=== PATIENT | male | born 1995 | race Caucasian/White ===

== ENCOUNTER 2024-04-28 22:56 | Emergency (ER) | payer OTHER ==
[2024-04-28 23:06] VITALS: TEMP 98
[2024-04-28 23:58] LABS: Basophils # (A) 0.1 k/uL (0-0.2); Basophils % (A) 1 %; Eosinophils # (A) 0.2 k/uL (0-0.7); Eosinophils % (A) 3 %; HCT 42.9 % (39.0-53.0); HGB 14.5 gm/dL (13.0-17.5); Lymphocytes # (A) 2.1 k/uL (1.0-4.8); Lymphocytes % (A) 30 %; MCH 30.2 pg (25.0-35.0); MCHC 33.9 g/dL (31.0-37.0); MCV 89.2 fL (80.0-100.0); Monocytes # (A) 0.4 k/uL (0-1.0); Monocytes % (A) 6 %; Neutrophils # (A) 3.9 k/uL (1.3-7.7); Neutrophils % (A) 56 %; Platelet Count 208 k/uL (150-450); RBC 4.81 m/uL (4.30-5.90)
[2024-04-29 00:09] LABS: INR 1.2 (<1.2); Partial Thromboplastin Time 24.6 sec (22.0-30.0); Prothrombin Time 12.5 sec (10.0-12.5)
[2024-04-29 00:21] LABS: ALT 15 U/L (4-49); AST 26 U/L (17-59); African American GFR (CKD) >90 (>60 ml/min/1.73 sqM); Albumin 4.3 g/dL (3.5-5.0); Alkaline Phosphatase 42 U/L (38-126); Anion Gap 7 mmol/L; Blood Urea Nitrogen 13 mg/dL (9-20); Calcium 9.2 mg/dL (8.4-10.2); Carbon Dioxide 22 mmol/L (22-30); Chloride 110 mmol/L (98-107); Glucose 90 mg/dL (74-99); Magnesium 1.9 mg/dL (1.6-2.3); Non-African American GFR(CKD) >90 (>60 ml/min/1.73 sqM); Potassium 3.7 mmol/L (3.5-5.1); Sodium 139 mmol/L (137-145); Total Bilirubin 0.8 mg/dL (0.2-1.3); Total Protein 6.4 g/dL (6.3-8.2)
[2024-04-29] MEDS: SODIUM CHLORIDE 0.9% 1,000 ML IV STA (00:30)
[2024-04-29] MEDS: KETOROLAC 15 MG/ML 1 ML VIAL IVP STA (00:31)
[2024-04-29] MEDS: hydrOXYzine HCL 25 MG TAB PO STA (00:32)
[2024-04-29 00:42] VITALS: RESP 16
--- NOTE | 2024-04-29 01:17 | XR ---
EXAMINATION TYPE: XR chest 2V DATE OF EXAM: 04/29/2024 COMPARISON: NONE HISTORY: Chest pain. TECHNIQUE: Frontal and lateral views of the chest are obtained. FINDINGS: Overlying EKG leads are seen. There is no focal air space opacity, pleural effusion, or pne umothorax seen. The cardiac silhouette size is within normal limits. The osseous structures are in tact. IMPRESSION: No acute cardiopulmonary process.
[2024-04-29] MEDS: DEXAMETHASONE SOD PHOSPHATE 10 MG/ML 1 ML VIAL IVP STA (02:31)
--- NOTE | 2024-04-29 02:48 | ED ---
Chest Pain HPI - General Chief Complaint: Chest Pain Stated Complaint: chest pain numbness Time Seen by Provider: 04/28/24 23:12 Source: patient Mode of arrival: wheelchair Limitations: no limitations - History of Present Illness Initial Comments: 29-year-old male presenting with chief complaint of chest pain. Pain started yesterday. It is a pain in the center of the chest with occasional radiation to the arm. Patient states that he has had pain like this ongoing for quite a while. He has been to different ERs multiple times and states that "they cannot find anything wrong with me". He does not follow with a PCP. He states that at times when he gets the pain he also gets a sensation of tightness in his throat, tingling in his extremities, dizziness. No cough, congestion, sore throat, fever, chills, nausea, vomiting. - Related Data Allergies Allergy/AdvReac Type Severity Reaction Status Date / Time No Known Allergies Allergy Verified 04/28/24 22:59 Review of Systems ROS Statement: Those systems with pertinent positive or pertinent negative responses have been documented in the HPI. ROS Other: All systems not noted in ROS Statement are negative. Past Medical History Past Medical History: Pneumonia History of Any Multi-Drug Resistant Organisms: MRSA Date of last positivie culture/infection: 2021 MDRO Source:: hip Past Surgical History: Orthopedic Surgery Past Psychological History: ADD/ADHD, Anxiety, Bipolar, Depression, PTSD Smoking Status: Vaper Past Alcohol Use History: None Reported Past Drug Use History: Marijuana General Exam Limitations: no limitations General appearance: alert, anxious Head exam: Present: atraumatic, normocephalic Eye exam: Present: normal appearance, EOMI Neck exam: Present: normal inspection. Absent: meningismus Respiratory exam: Present: normal lung sounds bilaterally. Absent: respiratory distress, wheezes, rales, rhonchi, stridor Cardiovascular Exam: Present: normal rhythm, bradycardia, normal heart sounds. Absent: systolic murmur, diastolic murmur, rubs, gallop, clicks Extremities exam: Present: normal inspection. Absent: pedal edema Neurological exam: Present: alert, oriented X3 Psychiatric exam: Present: normal affect, normal mood Skin exam: Present: warm, dry Course Vital Signs 04/28/24 04/29/24 04/29/24 23:00 00:38 02:54 Temperature 98.0 F Pulse Rate 50 L 40 L 50 L Respiratory 18 16 16 Rate Blood Pressure 143/80 110/61 111/50 O2 Sat by Pulse 100 100 99 Oximetry Chest Pain MDM - MDM Was pt. sent in by a medical professional or institution (MARBIN Horne, BOX SEALING INSPECTOR, urgent care, hospital, or [place] health care facility...) When possible be specific @ -No Did you speak to anyone other than the patient for history (EMS, parent, family, police, friend...)? What history was obtained from this source @ -No Did you review nursing and triage notes (agree or disagree)? Why? @ -I reviewed and agree with nursing and triage notes Were old charts reviewed (outside hosp., previous admission, EMS record, old EKG, old radiological studies, urgent care reports/EKG's, [place] health care facility records)? Report findings @ -No old charts were reviewed Differential Diagnosis (chest pain, altered mental status, abdominal pain women, abdominal pain men, vaginal bleeding, weakness, fever, dyspnea, syncope, headache, dizziness, GI bleed, back pain, seizure, CVA, palpatations, mental health, musculoskeletal)? @ -MDM Differential Chest Pain: Stable Angina, Unstable Angina, STEMI, NSTEMI Aortic Dissection, Pneumothorax, Musculoskeletal, Esophageal Spasm GERD, Cholecystitis, Pancreatitis, Zoster This is not meant to be an all-inclusive list. EKG interpreted by me (3pts min.). @ -EKG shows sinus bradycardia ventricular rate 39. FL interval 164. QRS 108. QT 413. QTc 338. X-rays interpreted by me (1pt min.). @ -Chest x-ray shows no acute cardiac pulmonary process CT interpreted by me (1pt min.). @ -None done U/S interpreted by me (1pt. min.). @ -None done What testing was considered but not performed or refused? (CT, X-rays, U/S, labs)? Why? @ -I offered the patient admission for evaluation by cardiology, he refused What meds were considered but not given or refused? Why? @ -None Did you discuss the management of the patient with other professionals (professionals i.e. MARBIN Horne, BOX SEALING INSPECTOR, lab, RT, psych nurse, social science analyst, wet trimmer, teacher, immigration officer, rn case management)? Give summary @ -No Was smoking cessation discussed for >3mins.? @ -No Was critical care preformed (if so, how long)? @ -No Were there social determinants of health that impacted care today? How? (Homelessness, low income, unemployed, alcoholism, drug addiction, transportation, low edu. Level, literacy, decrease access to med. care, half-way, rehab)? @ -No Was there de-escalation of care discussed even if they declined (Discuss DNR or withdrawal of care, Hospice)? DNR status @ -No What co-morbidities impacted this encounter? (DM, HTN, Smoking, COPD, CAD, Cancer, CVA, ARF, Chemo, Hep., AIDS, mental health diagnosis, sleep apnea, morbid obesity)? @ -None Was patient admitted / discharged? Hospital course, mention meds given and route, prescriptions, significant lab abnormalities, going to OR and other pertinent info. @ -29-year-old male presenting with chief complaint of chest pain. History and physical examination are conducted. It is noted that the patient is bradycardic. He is not having any dizziness or difficulty breathing, he is showing no acute distress. Resting comfortably in the stretcher. Heart and lungs are clear to auscultation. No pedal edema. No leukocytosis or anemia. Negative troponin. Negative for influenza, RSV, COVID. Chest x-ray shows no acute cardiopulmonary process. EKG shows sinus bradycardia with no ST deviation. The patient's nurse ambulated while monitoring his vitals, patient was asymptomatic throughout their walk. Vitals stable, consistent with his range while he has been here. I offered the patient admission for evaluation by cardiology given his bradycardia. Patient refuses states he is scared of hospitals. He is provided with referrals for primary care doctor and orthotist or prosthetist. Discharged. Follow-up with PCP. Report back to ER with any new or worsening symptoms. Discussed return parameters and answered all questions. Patient conveyed verbal understanding and agreed to the plan. I discussed this case in detail with my attending Dr. Haji Undiagnosed new problem with uncertain prognosis? @ -No Drug Therapy requiring intensive monitoring for toxicity (Heparin, Nitro, Insulin, Cardizem)? @ -No Were any procedures done? @ -No Diagnosis/symptom? @ -Chest pain, sinus bradycardia Acute, or Chronic, or Acute on Chronic? @ -Acute Uncomplicated (without systemic symptoms) or Complicated (systemic symptoms)? @ -Uncomplicated Side effects of treatment? @ -No Exacerbation, Progression, or Severe Exacerbation? @ -No Disposition Clinical Impression: Chest wall pain, Bradycardia Disposition: HOME SELF-CARE Condition: Good Instructions (If sedation given, give patient instructions): Chest Pain (ED), Costochondritis (ED), Bradycardia (ED) Additional Instructions: Follow-up with PCP and cardiology. Report back to ER with any new or worsening symptoms. Is patient prescribed a controlled substance at d/c from ED?: No Referrals: None,Stated [Primary Care Provider] - 1-2 days Pedro Gilmore MD [STAFF PHYSICIAN] - 1-2 days Maykel Raya MD [STAFF PHYSICIAN] - 1-2 days Time of Disposition: 02:48
[2024-04-29 02:56] VITALS: BP 111/50; PULSE 50
== END 2024-04-29 03:12 | disposition home or self-care (01) ==
LOC: EC 22:56
CPT/HCPCS: 36415; 71046; 80053; 83735; 84484; 85025; 85610; 85730; 87636; 93005; 96361; 96374; 96375; 99285

== ENCOUNTER 2024-06-11 20:52 | Emergency (ER) | payer OTHER ==
[2024-06-11 21:00] VITALS: RESP 18
--- NOTE | 2024-06-11 21:17 | ED ---
General Adult HPI - General Chief complaint: Upper Respiratory Infection Stated complaint: cough congestion Time Seen by Provider: 06/11/24 21:16 Source: patient, RN notes reviewed Mode of arrival: ambulatory Limitations: no limitations - History of Present Illness Initial comments: 29-year-old male presenting to the ER with a chief complaint of shortness of breath. Patient states he has been having difficulty breathing for the past 4 to 5 weeks. He states it has progressively worsened. He does report he recently quit smoking cigarettes approximately 2 weeks ago. He still smokes 1 cigarette a day and marijuana. He also was endorsing a dry cough and a burning chest discomfort. He states the chest discomfort is in his central chest worse when he lays down and in the morning. Does mild improvement throughout the day. He has been taking [id number] ibuprofen with no relief. He denies any peripheral edema or exertional dyspnea. Denies any history of blood clots. Denies any abdominal pain, constipation/diarrhea, urinary complaints. - Related Data Previous Rx's Medication Instructions Recorded Omeprazole 20 mg PO DAILY #30 cap 06/11/24 Allergies Allergy/AdvReac Type Severity Reaction Status Date / Time Penicillins Allergy Rash/Hives Verified 06/11/24 21:00 Review of Systems ROS Statement: Those systems with pertinent positive or pertinent negative responses have been documented in the HPI. ROS Other: All systems not noted in ROS Statement are negative. Past Medical History Past Medical History: Pneumonia History of Any Multi-Drug Resistant Organisms: MRSA Date of last positivie culture/infection: 2021 MDRO Source:: hip Past Surgical History: Orthopedic Surgery Past Psychological History: ADD/ADHD, Anxiety, Bipolar, Depression, PTSD Smoking Status: Vaper Past Alcohol Use History: None Reported Past Drug Use History: Marijuana General Exam Limitations: no limitations General appearance: alert, in no apparent distress ENT exam: Present: normal exam, normal oropharynx, mucous membranes moist Neck exam: Present: normal inspection. Absent: tenderness, meningismus, lymphadenopathy Respiratory exam: Present: normal lung sounds bilaterally. Absent: respiratory distress, wheezes, rales, rhonchi, stridor Cardiovascular Exam: Present: regular rate, normal rhythm, normal heart sounds. Absent: systolic murmur, diastolic murmur, rubs, gallop, clicks Neurological exam: Present: alert, oriented X3, CN II-XII intact Skin exam: Present: warm, dry, intact, normal color. Absent: rash Course Vital Signs 06/11/24 06/11/24 20:58 23:08 Temperature 98.4 F 97.9 F Pulse Rate 78 52 L Respiratory 18 18 Rate Blood Pressure 109/73 98/55 O2 Sat by Pulse 97 99 Oximetry Medical Decision Making - Medical Decision Making Was pt. sent in by a medical professional or institution (, [place], [employer]IC[employer]ER, urgent care, hospital, or senior living...) When possible be specific @ -No Did you speak to anyone other than the patient for history (EMS, parent, family, police, friend...)? What history was obtained from this source @ -No Did you review nursing and triage notes (agree or disagree)? Why? @ -I reviewed and agree with nursing and triage notes Were old charts reviewed (outside hosp., previous admission, EMS record, old EKG, old radiological studies, urgent care reports/EKG's, senior living records)? Report findings @ -No old charts were reviewed Differential Diagnosis (chest pain, altered mental status, abdominal pain women, abdominal pain men, vaginal bleeding, weakness, fever, dyspnea, syncope, headache, dizziness, GI bleed, back pain, seizure, CVA, palpatations, mental health, musculoskeletal)? @ -Differential Chest Pain: Stable Angina, Unstable Angina, STEMI, NSTEMI Aortic Dissection, Pneumothorax, Musculoskeletal, Esophageal Spasm GERD, Cholecystitis, Pancreatitis, Zoster, this is not meant to be an all-inclusive list. EKG interpreted by me (3pts min.). @ -As above X-rays interpreted by me (1pt min.). @ -CXR interpreted by me negative for acute cardiopulmonary process. CT interpreted by me (1pt min.). @ -None done U/S interpreted by me (1pt. min.). @ -None done What testing was considered but not performed or refused? (CT, X-rays, U/S, labs)? Why? @ -None What meds were considered but not given or refused? Why? @ -None Did you discuss the management of the patient with other professionals (professionals i.e. , MARBIN, B[employer] LU[employer]IC[employer] MIXER, lab, RT, psych nurse, social work assistant, child support specialist, teacher, chief business development officer, child support case officer)? Give summary @ -No Was smoking cessation discussed for >3mins.? @ -I discussed smoking cessation for greater than 3 minutes. The risk of smoking were discussed with the patient including but not limited to risks of cancer, stroke, coronary artery disease and COPD. Also discussed with patient were multiple methods of quitting smoking. Lastly we discussed the financial cost of smoking. Was critical care preformed (if so, how long)? @ -No Were there social determinants of health that impacted care today? How? (Homelessness, low income, unemployed, alcoholism, drug addiction, transportation, low edu. Level, literacy, decrease access to med. care, snf, rehab)? @ -No Was there de-escalation of care discussed even if they declined (Discuss DNR or withdrawal of care, Hospice)? DNR status @ -No What co-morbidities impacted this encounter? (DM, HTN, Smoking, COPD, CAD, Cancer, CVA, ARF, Chemo, Hep., AIDS, mental health diagnosis, sleep apnea, morbid obesity)? @ -Smoker Was patient admitted / discharged? Hospital course, mention meds given and route, prescriptions, significant lab abnormalities, going to OR and other pertinent info. @ -Discharge. 29-year-old male presented to the ER with a chief complaint shortness of breath. History and physical exam completed. Vitals within normal limits. Patient in no signs of acute distress and resting comfortably in exam room. Exam benign. Laboratory studies obtained unremarkable. D-dimer less than 0.17, troponin less than 0.012. Viral swabs negative. Chest x-ray interpreted by me negative for acute cardiopulmonary process. Symptoms believed to be due to smoking habit and possible GERD. Omeprazole prescribed. Patient stable for discharge at this time. Strict return parameters discussed. Patient discharged in stable condition with follow-up to PCP. Patient verbally expressed understanding and agreement with care plan. Case discussed with ED attending, Dr. Em. Undiagnosed new problem with uncertain prognosis? @ -No Drug Therapy requiring intensive monitoring for toxicity (Heparin, Nitro, Insulin, Cardizem)? @ -No Were any procedures done? @ -No Diagnosis/symptom? @ -Cough/GERD Acute, or Chronic, or Acute on Chronic? @ -Acute Uncomplicated (without systemic symptoms) or Complicated (systemic symptoms)? @ -Uncomplicated Side effects of treatment? @ -No Exacerbation, Progression, or Severe Exacerbation? @ -No Poses a threat to life or bodily function? How? (Chest pain, [place], [place], pneumonia, PE, COPD, DKA, ARF, appy, cholecystitis, CVA, Diverticulitis, Homicidal, Suicidal, threat to staff... and all critical care pts) @ -No - Lab Data Result diagrams: 06/11/24 21:06/11/24 21: Lab Results 06/11/24 06/11/24 06/11/24 Range/Units 21:28 21: 21:28 WBC 6.8 (3.8-10.6) k/uL RBC 5.06 (4.30-5.90) m/uL Hgb 15.9 (13.0-17.5) gm/dL Hct 45.5 (39.0-53.0) % MCV 90.0 (80.0-100.0) fL MCH 31.5 (25.0-35.0) pg MCHC 35.0 (31.0-37.0) g/dL RDW 13.0 (11.5-15.5) % Plt Count 224 (150-450) k/uL MPV 7.8 Neutrophils % 53 % Lymphocytes % 32 % Monocytes % 8 % Eosinophils % 4 % Basophils % 1 % Neutrophils # 3.6 (1.3-7.7) k/uL Lymphocytes # 2.2 (1.0-4.8) k/uL Monocytes # 0.5 (0-1.0) k/uL Eosinophils # 0.3 (0-0.7) k/uL Basophils # 0.0 (0-0.2) k/uL PT 11.4 (10.0-12.5) sec INR 1.1 (<1.2) APTT 24.3 (22.0-30.0) sec D-Dimer <0.17 (<0.60) mg/L FEU Sodium 138 (137-145) mmol/L Potassium 4.0 (3.5-5.1) mmol/L Chloride 112 H (98-107) mmol/L Carbon Dioxide 22 (22-30) mmol/L Anion Gap 4 mmol/L BUN 13 (9-20) mg/dL Creatinine 0.83 (0.66-1.25) mg/dL Est GFR (CKD-EPI)AfAm >90 (>60 ml/min/1.73 sqM) Est GFR (CKD-EPI)NonAf >90 (>60 ml/min/1.73 sqM) Glucose 88 (74-99) mg/dL Calcium 8.7 (8.4-10.2) mg/dL Total Bilirubin 0.6 (0.2-1.3) mg/dL AST 23 (17-59) U/L ALT 13 (4-49) U/L Alkaline Phosphatase 37 L (38-126) U/L Troponin I (0.000-0.034) ng/mL Total Protein 5.6 L (6.3-8.2) g/dL Albumin 3.7 (3.5-5.0) g/dL Influenza Type A (PCR) (Not Detectd) Influenza Type B (PCR) (Not Detectd) RSV (PCR) (Not Detectd) SARS-CoV-2 (PCR) (Not Detectd) 06/11/24 06/11/24 Range/Units 21:28 21:28 WBC (3.8-10.6) k/uL RBC (4.30-5.90) m/uL Hgb (13.0-17.5) gm/dL Hct (39.0-53.0) % MCV (80.0-100.0) fL MCH (25.0-35.0) pg MCHC (31.0-37.0) g/dL RDW (11.5-15.5) % Plt Count (150-450) k/uL MPV Neutrophils % % Lymphocytes % % Monocytes % % Eosinophils % % Basophils % % Neutrophils # (1.3-7.7) k/uL Lymphocytes # (1.0-4.8) k/uL Monocytes # (0-1.0) k/uL Eosinophils # (0-0.7) k/uL Basophils # (0-0.2) k/uL PT (10.0-12.5) sec INR (<1.2) APTT (22.0-30.0) sec D-Dimer (<0.60) mg/L FEU Sodium (137-145) mmol/L Potassium (3.5-5.1) mmol/L Chloride (98-107) mmol/L Carbon Dioxide (22-30) mmol/L Anion Gap mmol/L BUN (9-20) mg/dL Creatinine (0.66-1.25) mg/dL Est GFR (CKD-EPI)AfAm (>60 ml/min/1.73 sqM) Est GFR (CKD-EPI)NonAf (>60 ml/min/1.73 sqM) Glucose (74-99) mg/dL Calcium (8.4-10.2) mg/dL Total Bilirubin (0.2-1.3) mg/dL AST (17-59) U/L ALT (4-49) U/L Alkaline Phosphatase (38-126) U/L Troponin I <0.012 (0.000-0.034) ng/mL Total Protein (6.3-8.2) g/dL Albumin (3.5-5.0) g/dL Influenza Type A (PCR) Not Detected (Not Detectd) Influenza Type B (PCR) Not Detected (Not Detectd) RSV (PCR) Not Detected (Not Detectd) SARS-CoV-2 (PCR) Not Detected (Not Detectd) - EKG Data -: EKG Interpreted by Me EKG Comments: EKG taken at 21: 44 showing a sinus rhythm with sinus arrhythmia. No ST segment or T wave abnormalities. Ventricular rate 64, NE interval 160, QRS duration 105, QT/QTc 376/385. - Radiology Data Radiology results: report reviewed, image reviewed Disposition Clinical Impression: Cough, GERD (gastroesophageal reflux disease) Disposition: HOME SELF-CARE Condition: Stable Instructions (If sedation given, give patient instructions): How to Stop Smoking (ED), GERD (Gastroesophageal Reflux Disease) (ED) Additional Instructions: Follow-up with PCP. Return to the ER for any new or worsening concerns. Prescriptions: Omeprazole 20 mg PO DAILY #30 cap Is patient prescribed a controlled substance at d/c from ED?: No Referrals: None,Stated [Primary Care Provider] - 1-2 days Time of Disposition: 22:51
[2024-06-11 21:49] LABS: Basophils % (A) 1 %; Eosinophils # (A) 0.3 k/uL (0-0.7); Eosinophils % (A) 4 %; HCT 45.5 % (39.0-53.0); HGB 15.9 gm/dL (13.0-17.5); Lymphocytes # (A) 2.2 k/uL (1.0-4.8); Lymphocytes % (A) 32 %; MCH 31.5 pg (25.0-35.0); Mean Platelet Volume 7.8; Monocytes # (A) 0.5 k/uL (0-1.0); Monocytes % (A) 8 %; Neutrophils # (A) 3.6 k/uL (1.3-7.7); Neutrophils % (A) 53 %; Platelet Count 224 k/uL (150-450); RBC 5.06 m/uL (4.30-5.90); WBC 6.8 k/uL (3.8-10.6)
--- NOTE | 2024-06-11 21:58 | XR ---
EXAMINATION TYPE: XR chest 2V DATE OF EXAM: 06/11/2024 9:51 PM CLINICAL INDICATION:Male, 29 years old with history of dyspnea; [facility] COMPARISON: None TECHNIQUE: XR chest 2V Frontal and lateral views of the chest. FINDINGS: Lungs/Pleura: There is no evidence of pleural effusion, focal consolidation, or pneumothorax. Pulmonary vascularity: Unremarkable. Heart/mediastinum: Cardiomediastinal silhouette is unremarkable. Musculoskeletal: No acute osseous pathology. IMPRESSION: No acute cardiopulmonary disease/process. [facility], , 06/11/2024 9:56 PM
[2024-06-11 21:59] LABS: INR 1.1 (<1.2); Partial Thromboplastin Time 24.3 sec (22.0-30.0); Prothrombin Time 11.4 sec (10.0-12.5)
[2024-06-11 22:07] LABS: ALT 13 U/L (4-49); AST 23 U/L (17-59); African American GFR (CKD) >90 (>60 ml/min/1.73 sqM); Albumin 3.7 g/dL (3.5-5.0); Alkaline Phosphatase 37 U/L (38-126); Anion Gap 4 mmol/L; Blood Urea Nitrogen 13 mg/dL (9-20); Calcium 8.7 mg/dL (8.4-10.2); Carbon Dioxide 22 mmol/L (22-30); Chloride 112 mmol/L (98-107); Glucose 88 mg/dL (74-99); Non-African American GFR(CKD) >90 (>60 ml/min/1.73 sqM); Sodium 138 mmol/L (137-145); Total Bilirubin 0.6 mg/dL (0.2-1.3); Total Protein 5.6 g/dL (6.3-8.2)
[2024-06-11 23:10] VITALS: BP 98/55; PULSE 52; TEMP 97.9
== END 2024-06-11 23:10 | disposition home or self-care (01) ==
LOC: EC 20:52
CPT/HCPCS: 36415; 71046; 80053; 84484; 85025; 85379; 85610; 85730; 87636; 93005; 99284; 99406

== ENCOUNTER 2024-11-03 11:58 | Emergency (ER) | payer OTHER ==
[2024-11-03 12:01] VITALS: BP 146/54; PULSE 77; RESP 18; TEMP 98.1
[2024-11-03] MEDS: Acetaminophen-Codeine 300-30mg TAB PO STA (12:27)
[2024-11-03] MEDS: KETOROLAC 15 MG/ML 1 ML VIAL IM STA (12:27)
--- NOTE | 2024-11-03 12:29 | ED ---
General Adult HPI - General Chief complaint: Extremity Problem,Nontraumatic Stated complaint: L arm pain Time Seen by Provider: 11/03/24 12:01 Source: patient Mode of arrival: ambulatory Limitations: no limitations - History of Present Illness Initial comments: Patient is a 29-year-old male past medical history of hypertension, remote hx left shoulder rotator cuff injury and surgery presenting today for left shoulder pain. Patient playfully threw his on the bed yesterday at 10 AM and suddenly felt pain in his left shoulder. He attempted ibuprofen and icing his shoulder yesterday without relief. Could not sleep due to pain. [place] very hot this morning but not measured any fevers. Denies chills, chest pain, difficulty in breathing, sore throat, cough or hemoptysis. Feels like there is grinding in his shoulder when he rotates it and has pain with abduction. Rates pain a 7 out of 10. Last dose ibuprofen 800 mg at 2 AM with no relief. Only allergies to penicillin. No rashes or numbness. - Related Data Previous Rx's Medication Instructions Recorded Omeprazole 20 mg PO DAILY #30 cap 06/11/24 Allergies Allergy/AdvReac Type Severity Reaction Status Date / Time Penicillins Allergy Rash/Hives Verified 11/03/24 12:01 Review of Systems ROS Statement: Those systems with pertinent positive or pertinent negative responses have been documented in the HPI. ROS Other: All systems not noted in ROS Statement are negative. Past Medical History Past Medical History: Pneumonia, Seizure Disorder History of Any Multi-Drug Resistant Organisms: MRSA Date of last positivie culture/infection: 2021 MDRO Source:: hip Past Surgical History: Orthopedic Surgery Additional Past Surgical History / Comment(s): knee Past Psychological History: ADD/ADHD, Anxiety, Bipolar, Depression, PTSD Smoking Status: Vaper Past Alcohol Use History: None Reported Past Drug Use History: Marijuana General Exam - General Exam Comments Initial Comments: PE: CONSTITUTIONAL: No apparent distress, well appearing SKIN: Warm, dry, no jaundice, hives or petechiae, no erythema, contusions, hematomas or discoloration EYES: Pupils are equally round, extraocular movements intact without nystagmus, clear conjunctiva, non-icteric sclera HENT: Normocephalic, atraumatic, moist mucus membranes, oropharynx clear without exudates NECK: , Full range of motion, normal appearance PULMONARY: Clear to auscultation without wheezes, rhonchi, or rales, normal excursion, no accessory muscle use and no stridor CARDIOVASCULAR: Regular rate, rhythm, normal S1 and S2. No appreciated murmurs, rubs or gallops. Extremities well-perfused, 2+ radial pulse palpated left upper extremity MUSCULOSKELETAL: Mild swelling of anterior left shoulder compared to right, TTP along glenohumeral joint, slight prominence of the distal acromiom, pain with abduction and flexion, able to abduct and flex to aprox 80 degrees, no TTP distal humerus, elbow, wrist, remainder of distal LUE, neurovascularly intact, sensation intact along deltoid NEUROLOGIC:_a/o x 3, GCS 15, normal mentation and speech.No focal neurologic deficits, clear speech, sensation intact to light touch throughout affected extremity PSYCHIATRIC:_normal mood and affect, thought process is clear and linear Limitations: no limitations Course Vital Signs 11/03/24 11:58 Temperature 98.1 F Pulse Rate 77 Respiratory 18 Rate Blood Pressure 146/54 O2 Sat by Pulse 99 Oximetry Medical Decision Making - Medical Decision Making Was pt. sent in by a medical professional or institution (, PA, [employer], urgent care, hospital, or longterm...) When possible be specific @ -No Did you speak to anyone other than the patient for history (EMS, parent, family, police, friend...)? What history was obtained from this source @ -No Did you review nursing and triage notes (agree or disagree)? Why? @ -I reviewed nursing and triage notes triage note does state that patient denied trauma however patient states to me that he threw his onto the bed yesterday, playfully with resultant left shoulder pain Were old charts reviewed (outside hosp., previous admission, EMS record, old EKG, old radiological studies, urgent care reports/EKG's, longterm records)? Report findings @ -Medical records reviewed patient was here in 10/04/2024 after slip and fall, ultimately left AGAINST MEDICAL ADVICE Differential Diagnosis (chest pain, altered mental status, abdominal pain women, abdominal pain men, vaginal bleeding, weakness, fever, dyspnea, syncope, headache, dizziness, GI bleed, back pain, seizure, CVA, palpatations, mental health, musculoskeletal)? @Differential Musculoskeletal Muscular strain, contusion, ligament sprain, fracture, arthritis, septic arthritis, bursitis, cellulitis, muscle spasm, nerve compression, ... This is not meant to be in all inclusive list EKG interpreted by me (3pts min.). @ -As above X-rays interpreted by me (1pt min.). I personally reviewed x-ray of left shoulder, I do not see evidence of fracture or dislocation, I agree with radiologist interpretation CT interpreted by me (1pt min.). @ -None done U/S interpreted by me (1pt. min.). @ -None done What testing was considered but not performed or refused? (CT, X-rays, U/S, labs)? Why? @ -None What meds were considered but not given or refused? Why? @ -None Did you discuss the management of the patient with other professionals (professionals i.e. , PA, [employer], lab, RT, psych nurse, social and political studies professor, tooth cutter spur, teacher, front desk officer, medical case manager)? Give summary @ -No Was smoking cessation discussed for >3mins.? @ -No Was critical care preformed (if so, how long)? @ -No Were there social determinants of health that impacted care today? How? (Homelessness, low income, unemployed, alcoholism, drug addiction, trans portation, low edu. Level, literacy, decrease access to med. care, longterm, rehab)? @ -No Was there de-escalation of care discussed even if they declined (Discuss DNR or withdrawal of care, Hospice)? @ -No What co-morbidities impacted this encounter? (DM, HTN, Smoking, COPD, CAD, Cancer, CVA, ARF, Chemo, Hep., AIDS, mental health diagnosis, sleep apnea, morbid obesity)? @ -None Was patient admitted / discharged? Hospital course, mention meds given and route, prescriptions, significant lab abnormalities, going to OR and other pertinent info. @ Discharged- this is a pleasant 29-year-old gentleman presenting today for left shoulder pain after playfully throwing his onto their bed yesterday. Remote hx prior rotator cuff surgery on same shoulder done at [facility]. Pt mildly hypertensive on arrival, otherwise afebrile, vitals w/in acceptable limit. Left shoulder shows mild swelling compared right, TTP along glenohemoral joint, distal acromion slightly more prominent on left compared to right, otherwise no gross deformity, able to abduct and flex the left shoulder to approximately 80 degrees, pain with abduction and flexion beyond this, sensation intact light touch along deltoid region and remainder of left upper extremity, neurovascularly intact with 2+ radial pulse, no erythema, bruising or discoloration of the extremity. Discussed with patient plan for x-ray, pain control. I highly suspect rotator cuff injury as opposed to acute fracture or dislocation, based on hx and exam. X-ray read as no acute process. Chronic changes noted. Updated patient to findings. He received his pain medication so has not had much relief of pain yet. Will discharge home with Tylenol 3 starter pack, additionally discussed importance of anti-inflammatories. Patient requested sling for comfort when resting, which was provided to patient. Did discuss with the patient the importance of performing gentle ROM exercises and to avoid complete immobility. Patient t will try to follow up with his orthopedic surgeon at [facility], however states he has not seen them since he was a teenager. Patient was given follow-up with Dr. Rivas as well. Patient agreeable plan of care and comfortable w/ discharge. In my medical judgment there is currently no evidence of an immediate life- threatening or surgical condition. Discharge is therefore indicated at this time. Discharge treatment instructions, follow up instructions, and appropriate emergency department return precautions were discussed with the patient and/or medical decision maker. Patient and/or medical decision maker expressed understanding of and agreed with the treatment plan, follow up instructions, and emergency department return precaution. All patient's and/or medical decision maker's questions were answered. The patient was advised that a small risk still exists that a serious condition could develop and was therefore instructed to return to the ED for any changes in symptoms, persistent symptoms, inability to obtain proper follow-up or for any further concerns. Patient received verbal and written instructions for this condition. Undiagnosed new problem with uncertain prognosis? @ -No Drug Therapy requiring intensive monitoring for toxicity (Heparin, Nitro, Insulin, Cardizem)? @ -No Were any procedures done? @ -No Diagnosis/symptom? @Left shoulder injury Acute, or Chronic, or Acute on Chronic? @Acute Uncomplicated (without systemic symptoms) or Complicated (systemic symptoms)? @Uncomplicated Side effects of treatment? @ -No Exacerbation, Progression, or Severe Exacerbation? @ -No Poses a threat to life or bodily function? How? (Chest pain, [place], [place], pneumonia, PE, COPD, DKA, ARF, appy, cholecystitis, CVA, Diverticulitis, Homicidal, Suicidal, threat to staff... and all critical care pts) @ -No Disposition Clinical Impression: Injury of left shoulder Disposition: HOME SELF-CARE Condition: Good Instructions (If sedation given, give patient instructions): Shoulder Pain (ED) Additional Instructions: Every disease is a spectrum and a small chance still exists that a serious condition could develop, for this reason, please monitor yourself closely for new, changing or worsening symptoms, symptoms that do not improve and/or worsen in 48 hours, new numbness of your knee, uncontrollable pain or swelling, fever, inability to tolerate/keep down fluids or your medications, inability to follow up with outpatient providers as instructed and should you experience these symptoms or should you have any further concerns for your wellbeing please return to the ED or call 911 immediately. Your pain can be treated with ibuprofen and acetaminophen. You can take up to 400-600 mg of ibuprofen (Advil, Motrin) 3 times daily (every 8 hours) but can also use lower doses if this relieves your pain. Some people prefer naproxen (Aleve, Naprosyn) which can be taken in doses of 500 mg up to twice a day. Do not take both of these medicines together, and do not combine either with ketorolac (Toradol), meloxicam (Mobic), or indomethacin (Tivorbex). Some people can develop stomach discomfort with higher doses of either ibuprofen or naproxen, if this develops decrease your dose or stop taking it. If you need to take this dose daily for more than a week, please schedule an appointment for re-evaluation with your PCP. Please take these medications with food. You can take up to 650 mg of acetaminophen (Tylenol) every 8 hours. Be careful as this is included in some medicines like Tylenol-#3, Nyquil, [place], Percocet, Vicodin, STANBACK, Goody's Powders, and Excedrin. Do not take greater than 4000 mg of acetaminophen in 24 hours You are being discharged with Tylenol-#3/ Tylenol with Codiene, please only take as prescribed/ as needed when pain does not improve with OTC medications. You can also use lidocaine patches for topical pain. You can purchase 4% patches over the counter at most drug stores. These can be helpful for pain from your muscles or bones. Please attempt to contact your previous orthopedic surgeon for close follow up if you are able. Otherwise, please contact, Dr. Colon's office, listed below, tomorrow for follow up within the next week. PLEASE call your primary care physician as soon as possible to arrange / discuss plan for followup appointment. Appointment in the next 1-3 days is strongly encouraged if possible. PLEASE let us know here before you leave if there is anything further we can do to be of any assistance. Take care and feel Better! Is patient prescribed a controlled substance at d/c from ED?: No Referrals: None,Stated [Primary Care Provider] - 1-2 days
--- NOTE | 2024-11-03 12:44 | XR ---
Left shoulder HISTORY: Pain. COMPARISON: None TECHNIQUE: 3 views left shoulder were obtained. FINDINGS: There are mild degenerative changes of the glenohumeral joint with mild joint space narrowing and sub chondral changes in the bony glenoid. The AC joint is intact. There is no acute fracture or dislocation. There are no soft tissue abnormalities. IMPRESSION: 1. No evidence of acute trauma. 2. Mild degenerative changes of the glenohumeral joint. [facility], , 11/03/2024 12:42 PM
[2024-11-03] MEDS: ACET/COD 300 MG/30 MG STARTER PACK 6 TAB BTL PO STA (13:13)
== END 2024-11-03 13:20 ==
LOC: EC 11:58
DX: S49.92XA Unspecified injury of left shoulder and upper arm, initial encounter (principal); F17.290 Nicotine dependence, other tobacco product, uncomplicated; X58.XXXA Exposure to other specified factors, initial encounter
CPT/HCPCS: 96372; 73030; 99284; J1885; 99283